=== PATIENT | male | born 1930 | race Caucasian/White ===

== ENCOUNTER → 2019-10-25 | Emergency (ER) | payer MEDICARE, OTHER ==
[~2019-10-25] VITALS: Ht 185.4 cm; Wt 99.8 kg
[~2019-10-25] MED LIST: FLUT250M2 IN; GLIP5TAB12 PO; LISI40TA PO; OLME40TA9 PO; PAR20T PO
[2019-10-25 11:00] LABS: Urine Bacteria NONE SEEN /hpf (None Seen); Urine Blood Negative /uL (Negative); Urine Mucus FEW (None Seen); Urine Specific Gravity 1.018 (1.001-1.035); Urine WBC 1 /hpf (0 - 3)
[2019-10-25 18:00] VITALS: BP 161/61
--- NOTE | 2019-10-26 09:42 | NUR ---
Weekend customer retention representative 10/25/19 I did not receive a page regarding the social service consult for this patient.
== END | disposition home or self-care (01) ==
LOC: EDUNIT# 08:21 → ER 08:30 → EDBD 08:30
DX: S80.02XA Contusion of left knee, initial encounter (principal); S80.01XA Contusion of right knee, initial encounter; S40.022A Contusion of left upper arm, initial encounter; S40.021A Contusion of right upper arm, initial encounter; G30.9 Alzheimer's disease, unspecified; F02.80 Dementia in other diseases classified elsewhere, unspecified severity, without behavioral disturbance, psychotic disturbance, mood disturbance, and anxiety; I10 Essential (primary) hypertension; E11.9 Type 2 diabetes mellitus without complications; Z86.73 Personal history of transient ischemic attack (TIA), and cerebral infarction without residual deficits; Z95.1 Presence of aortocoronary bypass graft; W19.XXXA Unspecified fall, initial encounter; Y93.89 Activity, other specified; Y92.129 Unspecified place in nursing home as the place of occurrence of the external cause; Y99.8 Other external cause status
CPT/HCPCS: 51702; 81001; 93005